=== PATIENT | male | born 1975 | race Caucasian/White ===

== ENCOUNTER 2021-02-14 12:15 | Inpatient (IN) | payer OTHER ==
[~2021-02-14] VITALS: Ht 182.9 cm; Wt 158.8 kg
--- NOTE | ~2021-02-14 | O ---
[facility] [place] [address] OPERATIVE REPORT Name: MING SEXTON JR Room #: 459-P [facility] [place] M.R.#: [id number] Admission: 02/14/21 Attend Phys: Jatinder Iraheta MD Discharge: Date of : 77 Report #: [id number] THIS REPORT FOR: cc: Lacie Manning MD, Veronica A. MD Hoestje,Gabrielle Coon MD ~ DATE OF SERVICE: 02/15/2021 PREOPERATIVE DIAGNOSIS: Right ureteral stone. POSTOPERATIVE DIAGNOSES: Bulbar urethral stenosis, right ureteral stone, upper tract urinary tract infection. PROCEDURES: Urethral dilation, cystourethroscopy, right retrograde pyelogram, right ureteral stent placement, 6-Sudanese x 28 cm with strings removed. SURGEON: Dr. Gabrielle De Leon. CONING MACHINE OPERATOR: None. ANESTHESIA: General. ESTIMATED BLOOD LOSS: 1 mL. SPECIMENS: Urine culture from the right upper collecting system. DRAINS: Right ureteral stent, 6-Sudanese x 28 cm, strings removed. COMPLICATIONS: None. FINDINGS: The patient had a 14-15 Sudanese bulbar urethral stenosis that required dilation to allow cystourethroscopy. The prostate was nonobstructing with multiple tiny calcifications noted superficially along the prostatic urethra. On Pancystoscopy, the patient had a normal bladder with orthotopic ureteral orifices. On fluoroscopy, I did not appreciate an opacity in the right ureter lateral to L5, although the retrograde pyelogram did show contrast, did not flow past the area of the expected stone. After the obstruction was relieved, cloudy purulent urine began draining from the right upper collecting system. On fluoroscopy over the left renal field due to a [address] scan, this did show a faint opacity between the 11th and 12th rib and potentially the right ureteral stone was not opaque due to central obesity. INDICATIONS: This 46-year-old gentleman was admitted with an elevated creatinine and white blood cell count and a 7 mm right ureteral stone. He voiced understanding of risks and benefits with those risks including bleeding, [facility] [address] [place] [address] OPERATIVE REPORT Name: MING SEXTON Room #: 459-P [facility] [place] M.R.#: [id number] Admission: 02/14/21 Attend Phys: Jatinder Iraheta MD Discharge: Date of : 77 Report #: [id number] infection, inability to place a stent, need for staged procedure, ureteral injury, and unexpected findings. The patient voiced understanding, signed informed consent. DESCRIPTION OF PROCEDURE: The patient was placed supine on the operating room. He was already on Rocephin. He was prepped and draped in the usual sterile fashion. The 17-Sudanese rigid cystoscope was advanced through the urethra; however, in coming to the bulbar urethra, there was about 14-15 Sudanese stenosis that did not allow placement through. I then placed a wire under direct vision and using 18-Sudanese Mehta sound over the wire to dilate up the area. The 17-Sudanese scope was then advanced through this area and into the bladder. Both 30-degree and 70-degree lens were used with the above findings. The urine did appear clear in the bladder. Fluoroscopy over the right area did not show any opacity. To facilitate further stent placement, the cystoscope was removed and I attempted to place the 22.5-Sudanese rigid cystoscope through the urethra; however, the bulbar stenosis was not dilated enough passively. Therefore, a wire was placed again the scope backloaded off. I then used Henry dilators starting at 20-Sudanese and then 22-Sudanese to dilate up the area easily. The 22.5-Sudanese rigid cystoscope was advanced now easily into the bladder. The 5-Sudanese ____ catheter was advanced into the right ureteral orifice and retrograde pyelogram performed. The contrast did not flow past the area of the expected stone without any contrast seen proximally under fluoroscopy. I then used the angled ZIPwire and this advanced easily into the upper collecting system. The 5-Sudanese ____ catheter was then advanced over the wire easily into the upper collecting system. The wire was removed. Urine was obtained for culture and retrograde pyelogram confirmed correct intrarenal placement. The sensor wire was then placed and the catheter backloaded off. The urine was very cloudy noted from the right side and this was collected for analysis. Of note, on the retrograde pyelogram initially to the ureter itself was nondilated up to the stone and was not much wider caliber than the 5-Sudanese catheter. The 6-Sudanese x 20 cm stent was then advanced over the wire with a good coil in the right renal pelvis and I visualized a good coil in the bladder after the wire was removed. Cloudy urine continued to drain well. The bladder was drained and the ureteroscope was slowly removed. There was very minimal bleeding from the prior urethral dilation. Therefore, I do not feel Hull catheter to be needed. The cystoscope was then removed and the patient was placed back in supine position, awakened and taken to recovery room in stable condition. I had tried to call his son following the procedure, but went to voicemail. The patient will need to be set up for a stone definitive therapy in about 1 week. By: [id number] MD erika Rodriguez
[2021-02-14 12:33] VITALS: BP 136/97
[2021-02-14 12:47] LABS: URINE BILIRUBIN NEGATIVE (Negative); URINE BLOOD 1+ (Negative); URINE CLARITY CLEAR; URINE COLOR YELLOW; URINE GLUCOSE-RANDOM* NEGATIVE (Negative); URINE KETONES NEGATIVE (Negative); URINE LEUKOCYTES-REFLEX NEGATIVE (Negative); URINE NITRITE-REFLEX NEGATIVE (Negative); URINE PROTEIN (DIPSTICK) NEGATIVE (Negative); URINE SPECIFIC GRAVITY 1.015 (1.005-1.035); URINE UROBILINOGEN 0.2 E.U./dl (0.2-1.0)
[2021-02-14 13:11] LABS: CASTS None Seen /LPF (None Seen); SQUAMOUS 0-3 Few /LPF (0-3)
[2021-02-14 13:12] LABS: BACTERIA-REFLEX None Seen /HPF (None Seen); CRYSTALS None Seen /LPF (None Seen); URINE RBC 1-2 Rare /HPF (NONE SEEN); URINE WBC-REFLEX 0-5 Rare /HPF (0-5)
[2021-02-14 13:54] LABS: ABSOLUTE NEUTROPHILS 7.8 thou/uL (1.4-8.2); BASOPHILS 0.7 % (0.0-2.0); EOSINOPHILS 1.7 % (0.0-3.0); HEMATOCRIT 43.2 % (42.0-52.0); HEMOGLOBIN 14.8 gm/dL (14.0-18.0); LYMPHOCYTES 18.1 % (24.0-44.0); MCH 30.5 pg (26.0-34.0); MCHC 34.4 g/dL (28.0-37.0); MCV 88.8 fL (80.0-100.0); MONOCYTES 9.4 % (1.0-8.0); PLATELET COUNT 284 thou/uL (150-400); POLYS 70.1 % (36.0-66.0); RBC 4.86 mil/uL (4.50-6.00); RDW 13.9 % (10.5-14.5); WBC 11.2 thou/uL (4.0-11.0)
[2021-02-14 14:04] LABS: CALCIUM 8.8 mg/dL (8.5-10.1); CREATININE 1.5 mg/dL (0.7-1.3); POTASSIUM 3.5 mmol/L (3.5-5.1)
[2021-02-14] MEDS ORDERED: TELMISARTAN-HC1 EAC1 PO (14:39)
[2021-02-14 16:30] VITALS: BP 145/81
[2021-02-14 20:01] VITALS: BP 128/79
--- NOTE | 2021-02-15 01:13 | NUR ---
Assumed pt care at 1900. Admitted from ED approx 1805 with Kidney stones/right flank pain. A/OX4, VSS. Up ad dean,fall education reinforced and pt agrees to call for help. N.o for Fentanyl obtained, pt medicated with relief reported and very comfortable. Pt is NPO from midnight, IVF infusing via LAC w/o problems. Resting quietly w/o distress noted,will continue to monitor pt.
[2021-02-15 05:33] LABS: HEMATOCRIT 38.6 % (42.0-52.0); HEMOGLOBIN 13.2 gm/dL (14.0-18.0); MCH 30.9 pg (26.0-34.0); MCHC 34.1 g/dL (28.0-37.0); MCV 90.6 fL (80.0-100.0); RBC 4.26 mil/uL (4.50-6.00); RDW 14.1 % (10.5-14.5); WBC 8.9 thou/uL (4.0-11.0)
[2021-02-15 06:03] LABS: CALCIUM 8.3 mg/dL (8.5-10.1); CREATININE 1.7 mg/dL (0.7-1.3); POTASSIUM 3.8 mmol/L (3.5-5.1)
[2021-02-15 12:00] VITALS: BP 131/86
[2021-02-15 12:15] VITALS: BP 130/89
[2021-02-15 12:30] VITALS: BP 132/93
[2021-02-15 13:00] VITALS: BP 124/84
--- NOTE | 2021-02-15 13:17 | NUR ---
Alert of pt with BMI of 47.5=extreme class III obesity. Pt admit with renal stones, s/p cystoscopy, lithotripsy. Denied need for diet education and just asking "when can I eat" as only concern. Low nutrition risk
--- NOTE | 2021-02-15 16:10 | NUR ---
PT ADMITTED RELATED TO KIDNEY STONES/RIGHT FLANK PAIN. CM REVIEWED CHART AND SPOKE WITH CARE TEAM. CM MET WITH PT AT BEDSIDE THIS DAY. PT APPEARED TO BE A&O X4. CM ROLE INTRODUCED. PT INDICATED HE RESIDES IN A HOUSE WITH HIS SON. HE INDICATED A COUPLE OF STEPS TO ENTER AND NO STEPS INSIDE. 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 PT INDICATED HE PLANS TO RETURN HOME ONCE MEDICALLY STABLE. PT HAD UROLOGY PROCEDURE TODAY AND ANTIPATED DC TOMORROW. CM FOLLOWING REGARDING DC PLANNING.
--- NOTE | 2021-02-15 19:38 | NUR ---
Patient alert and orinted x4, on room air, patient voids per urinal, strain urine, up ad dean, pain controlled after uroscopy, vitals stable, and afbriele. Call light with in reach, will continue to monitor.
[2021-02-15 20:25] VITALS: BP 120/77
--- NOTE | 2021-02-16 03:32 | NUR ---
PT CARE ASSUMED WITH PT IN BED WATCHING TV .PT SON VISITED DURING SHIFT.PT IS A/O X4.PT DENIED PAIN.PT URINATING WITH NO ISSUES AND BLOOD OR PAIN.PT APPEARED TO BE IN NO ACUTE DISTRESS.WILL CONTINUE TO MONITOR
[2021-02-16 05:20] LABS: HEMATOCRIT 38.1 % (42.0-52.0); MCHC 34.3 g/dL (28.0-37.0); MCV 90.4 fL (80.0-100.0); RBC 4.21 mil/uL (4.50-6.00); RDW 13.9 % (10.5-14.5); WBC 10.3 thou/uL (4.0-11.0)
[2021-02-16 05:51] LABS: CALCIUM 8.5 mg/dL (8.5-10.1); CREATININE 1.3 mg/dL (0.7-1.3); POTASSIUM 4.1 mmol/L (3.5-5.1)
[2021-02-16 07:34] VITALS: BP 136/78
[2021-02-16] MEDS ORDERED: CEFADROXIL 500500 M1 PO (08:24)
[2021-02-16] MEDS ORDERED: CEPHALEXIN500 MG PO (08:28)
[2021-02-16 13:48] VITALS: BP 136/78
--- NOTE | 2021-02-16 14:11 | NUR ---
PT RESTING COMFORTABLY. AFEBRILE ADEQUATE UOP, NO BM, APPROPRIATE APPETITE. PIV REMOVED. PT THOUROUGHLY EDUCATED ON DC INFORMATION, PROGRESSING, AND POC. PT PROGRESSED TO POC. DC AT APPROX 1400.
== END 2021-02-16 14:15 | disposition home or self-care (01) | DRG 660 ==
LOC: ER 12:15 → EROBS 17:00 → 4W 17:00
PROVIDERS: Nurse Practitioner; Urology; ADMIT Hospitalist; ATTEND Hospitalist
PROC: 0T768DZ Dilation of Right Ureter with Intraluminal Device, Via Natural or Artificial Opening Endoscopic (ICD-10-PCS; principal; 2021-02-15)
PROC: BT1D1ZZ Fluoroscopy of Right Kidney, Ureter and Bladder using Low Osmolar Contrast (ICD-10-PCS; principal; 2021-02-15)
DX: N13.6 Pyonephrosis (principal); Z68.42 Body mass index [BMI] 45.0-49.9, adult; N17.9 Acute kidney failure, unspecified; E66.01 Morbid (severe) obesity due to excess calories; I10 Essential (primary) hypertension; N35.919 Unspecified urethral stricture, male, unspecified site; Z20.822 Contact with and (suspected) exposure to COVID-19; Z71.3 Dietary counseling and surveillance
CPT/HCPCS: 10040; 50010; 50101; 50478; 51566; 51620; 51767; 56674; 56815; 57160; 58565; 58732; 62110; 62900; 70005

== ENCOUNTER 2021-03-17 08:40 | Inpatient (IN) | payer OTHER ==
[~2021-03-17] VITALS: Ht 182.9 cm; Wt 163.3 kg
[2021-03-17] VITALS (8 sets, daily range): BP systolic 80–132; BP diastolic 26–84
[~2021-03-17 08:40] MED LIST: CEFADROXIL 500500 M1 PO; CEPHALEXIN500 MG PO; TELMISARTAN-HC1 EAC1 PO
[2021-03-17 09:18] LABS: ABSOLUTE NEUTROPHILS 15.3 thou/uL (1.4-8.2); BASOPHILS 0.2 % (0.0-2.0); HEMATOCRIT 37.9 % (42.0-52.0); MCH 30.3 pg (26.0-34.0); MCHC 34.4 g/dL (28.0-37.0); MCV 88.2 fL (80.0-100.0); MONOCYTES 10.5 % (1.0-8.0); PLATELET COUNT 218 thou/uL (150-400); POLYS 81.3 % (36.0-66.0); RDW 14.4 % (10.5-14.5); WBC 18.8 thou/uL (4.0-11.0)
[2021-03-17 09:31] LABS: ALBUMIN 2.7 g/dL (3.4-5.0); CALCIUM 8.2 mg/dL (8.5-10.1); DIRECT BILIRUBIN 0.2 mg/dL (<0.1-0.2); TOTAL BILIRUBIN 0.7 mg/dL (0.2-1.0); TOTAL PROTEIN 7.7 g/dL (6.4-8.2)
[2021-03-17 09:33] LABS: POTASSIUM 2.9 mmol/L (3.5-5.1)
[2021-03-17 12:16] LABS: URINE BILIRUBIN 2+ (Negative); URINE BLOOD 3+ (Negative); URINE CLARITY CLOUDY; URINE GLUCOSE-RANDOM* NEGATIVE (Negative); URINE KETONES NEGATIVE (Negative); URINE NITRITE-REFLEX NEGATIVE (Negative); URINE PROTEIN (DIPSTICK) 3+ (Negative); URINE SPECIFIC GRAVITY >= 1.030 (1.005-1.035); URINE UROBILINOGEN 0.2 E.U./dl (0.2-1.0)
[2021-03-17 12:18] LABS: URINE COLOR DARK YELLOW; URINE LEUKOCYTES-REFLEX 3+ (Negative)
[2021-03-17 12:28] LABS: URINE WBC-REFLEX >25 Many /HPF (0-5)
[2021-03-17 12:29] LABS: BACTERIA-REFLEX 1-9 Few /HPF (None Seen); CASTS None Seen /LPF (None Seen); CRYSTALS None Seen /LPF (None Seen); SQUAMOUS 0-3 Few /LPF (0-3); URINE RBC 3-10 Few /HPF (NONE SEEN)
--- NOTE | 2021-03-17 18:32 | NUR ---
PATIENT ADMITED TO UNIT AT 1430 FROM ER. A/O X4. GENERLIZED WEAKNESS. LIQUID STOOL SEND TO CHECK CDIFF. BP STABLE. FEBRILE. COVID NEGATIVE. WILL KEEP MONITOR.
[2021-03-18 03:51] VITALS: BP 108/64
--- NOTE | 2021-03-18 05:00 | NUR ---
Patient making slow progress towards ourcome goals. Continues to have liquid brown diarrhea, stool for c diff results pending. Vital signs and rhythm stable. High fall risks due to weakness, calls out appropriately for needs. Fall precautions in place. Fevere treated with Tylenol with relief, temp now 99.
[2021-03-18 05:20] LABS: ABSOLUTE NEUTROPHILS 14.7 thou/uL (1.4-8.2); BASOPHILS 0.2 % (0.0-2.0); EOSINOPHILS 0.1 % (0.0-3.0); HEMATOCRIT 36.7 % (42.0-52.0); HEMOGLOBIN 12.7 gm/dL (14.0-18.0); MCH 30.9 pg (26.0-34.0); MCHC 34.5 g/dL (28.0-37.0); MCV 89.6 fL (80.0-100.0); PLATELET COUNT 195 thou/uL (150-400); POLYS 81.7 % (36.0-66.0); WBC 17.9 thou/uL (4.0-11.0)
[2021-03-18 05:39] LABS: ALBUMIN 2.3 g/dL (3.4-5.0); CALCIUM 8.1 mg/dL (8.5-10.1); MAGNESIUM 2.4 mg/dL (1.8-2.4); POTASSIUM 3.2 mmol/L (3.5-5.1); TOTAL BILIRUBIN 0.6 mg/dL (0.2-1.0); TOTAL PROTEIN 7.1 g/dL (6.4-8.2)
[2021-03-18 06:09] LABS: CREATININE 3.7 mg/dL (0.7-1.3)
[2021-03-18 07:33] VITALS: BP 94/50
[2021-03-18 11:33] VITALS: BP 88/51
[2021-03-18 16:15] VITALS: BP 84/44
--- NOTE | 2021-03-18 18:11 | NUR ---
ASSUMED PATIENT CARE AT 0700. A/O X4. LIQUID STOOL X5. BP ON SOFT SIDE. LOW GRADE TEMP. DENIES PAIN. SLOWLY TOWARDS POC GOALS.
[2021-03-18 19:36] VITALS: BP 88/41
[2021-03-18 23:30] VITALS: BP 108/56
[2021-03-19 03:50] VITALS: BP 102/60
--- NOTE | 2021-03-19 04:57 | NUR ---
Patient making some progress towards outsome goals. Gait steady and feeling sondra. Fall risk changed to low. BP soft but stable, Rhythm remains tachy, sinus. Breathing shallow sats mid 90's on room air. Increase in sinus drainage, clear. Stool starting to get soft. Good oral intake. IVfluids infusing.
[2021-03-19 05:32] LABS: ABSOLUTE NEUTROPHILS 12.4 thou/uL (1.4-8.2); BASOPHILS 0.2 % (0.0-2.0); EOSINOPHILS 0.4 % (0.0-3.0); HEMATOCRIT 33.6 % (42.0-52.0); HEMOGLOBIN 11.4 gm/dL (14.0-18.0); LYMPHOCYTES 8.9 % (24.0-44.0); MCH 30.5 pg (26.0-34.0); MCHC 33.8 g/dL (28.0-37.0); MCV 90.1 fL (80.0-100.0); MONOCYTES 9.3 % (1.0-8.0); PLATELET COUNT 205 thou/uL (150-400); POLYS 81.2 % (36.0-66.0); RBC 3.73 mil/uL (4.50-6.00); RDW 15.3 % (10.5-14.5); WBC 15.3 thou/uL (4.0-11.0)
[2021-03-19 05:55] LABS: CALCIUM 8.2 mg/dL (8.5-10.1); MAGNESIUM 2.5 mg/dL (1.8-2.4)
[2021-03-19 06:10] LABS: CREATININE 2.3 mg/dL (0.7-1.3)
[2021-03-19 07:21] VITALS: BP 102/61
[2021-03-19 11:06] VITALS: BP 118/43
[2021-03-19 17:10] VITALS: BP 127/68
--- NOTE | 2021-03-19 18:34 | NUR ---
ASSUMED PATIENT CARE AT 0700. A/0 X4. STILL HAS DIARRHEA. UP AMBULATED IN ROOM. VS. LOW GRADE TEMP. PROGRESSING TOWARDS POC GOALS.
[2021-03-19 19:40] VITALS: BP 130/75
[2021-03-19 23:48] VITALS: BP 134/75
[2021-03-20 04:33] VITALS: BP 112/72
--- NOTE | 2021-03-20 06:10 | NUR ---
Patient making progress towards outcome goals. Vital signs and rhythm stable. Afebrile, IVFluids infusing at 60 ml/HR. Bowel movement frequency and consistency improving x 1 large loose. Gait steady feeling stronger. Still has periods of sweating at night with shortness of air when laying flat, sats mid 90's.
[2021-03-20 06:12] LABS: ABSOLUTE NEUTROPHILS 8.4 thou/uL (1.4-8.2); BASOPHILS 0.5 % (0.0-2.0); EOSINOPHILS 1.9 % (0.0-3.0); HEMATOCRIT 32.8 % (42.0-52.0); HEMOGLOBIN 11.2 gm/dL (14.0-18.0); LYMPHOCYTES 14.5 % (24.0-44.0); MCH 30.8 pg (26.0-34.0); MCHC 34.2 g/dL (28.0-37.0); MCV 90.2 fL (80.0-100.0); MONOCYTES 9.4 % (1.0-8.0); PLATELET COUNT 263 thou/uL (150-400); POLYS 73.7 % (36.0-66.0); RBC 3.64 mil/uL (4.50-6.00); RDW 15.8 % (10.5-14.5); WBC 11.3 thou/uL (4.0-11.0)
[2021-03-20 06:37] LABS: ALBUMIN 2.2 g/dL (3.4-5.0); CALCIUM 8.1 mg/dL (8.5-10.1); CREATININE 1.8 mg/dL (0.7-1.3); MAGNESIUM 2.3 mg/dL (1.8-2.4); POTASSIUM 3.3 mmol/L (3.5-5.1); TOTAL BILIRUBIN 0.5 mg/dL (0.2-1.0)
[2021-03-20 07:52] VITALS: BP 117/72
[2021-03-20 12:59] VITALS: BP 146/100
--- NOTE | 2021-03-20 13:10 | NUR ---
ASSUMED PT CARE AT SHIFT CHANGE, PT VERY IRRITATED BY PÉREZ CATH, PER UROLOGY BELT BACK OPERATOR, OK TO DC PÉREZ. PT TOLERATED WELL, WAITING ON PT TO URINATE BEFORE ABLE TO DC TO HOME. PT HAS NO ADDITIONAL QUESTIONS OR CONCERNS AT THIS TIME.
--- NOTE | 2021-03-20 15:04 | NUR ---
Nutrition: pt admitted with left flank pain, recurrent left renal colic. Here last month with right ureteral stone, S/P cystoscopy and stent. Pt voiced poor appetite lately. Currently eating < 50% of meals. Unsure of weight loss-current BMI 48.8, extreme class 3 obesity. Obtained food preferences and instructed on ordering meals as desired. Issues with diarrhea, suspected related to antibiotics. Started on loperamide. RD will offer ensure max, low calorie high protein supplement daily until po trends improve. Available for weight loss education if desired prior to D/C. Place as low nutrition risk.
[2021-03-20 15:06] VITALS: BP 144/95
[2021-03-20] MEDS ORDERED: TOPROL XL25 MG PO (15:12)
[2021-03-20] MEDS ORDERED: FLORANEX GRANU1 EACH PO (15:12)
[2021-03-20] MEDS ORDERED: K-DUR 20 MEQ T20 MEQ PO (15:12)
[2021-03-20] MEDS ORDERED: LOPERAMIDE 2 MG2 M1 PO (15:12)
[2021-03-20] MEDS ORDERED: CEFUROXIME500 MG PO (15:12)
[2021-03-20] MEDS ORDERED: ACETAMINOPHEN325 M1 PO (15:12)
[2021-03-20] MEDS ORDERED: FLOMAX0.4 MG PO (15:12)
[2021-03-20 15:42] VITALS: BP 144/95
--- NOTE | 2021-03-20 15:52 | NUR ---
PT ABLE TO VOID 400ML [place] URINE POST PÉREZ REMOVAL. PHYSICIAN NOTIFIED. DC PAPERWORK/EDUCATION PROVIDED. PT WAITING FOR BROTHER/RIDE.
[2021-03-20 16:20] VITALS: BP 144/95
== END 2021-03-20 16:20 | disposition home or self-care (01) | DRG 871 ==
LOC: ER 08:40 → 3W 14:27
PROVIDERS: Emergency Medicine; ADMIT Internal Medicine; ATTEND Internal Medicine
DX: A41.9 Sepsis, unspecified organism (principal); N17.0 Acute kidney failure with tubular necrosis; J18.9 Pneumonia, unspecified organism; N39.0 Urinary tract infection, site not specified; E87.1 Hypo-osmolality and hyponatremia; E86.0 Dehydration; N20.0 Calculus of kidney; E87.6 Hypokalemia; I12.9 Hypertensive chronic kidney disease with stage 1 through stage 4 chronic kidney disease, or unspecified chronic kidney disease; N18.9 Chronic kidney disease, unspecified; Z20.822 Contact with and (suspected) exposure to COVID-19; Z79.899 Other long term (current) drug therapy
CPT/HCPCS: 10879